=== PATIENT | female | born 1995 | race Caucasian/White ===

== ENCOUNTER 2017-02-27 10:06 | Outpatient (CLI) | payer OTHER | END 2017-02-27 10:07 | disposition home or self-care (01) | DX: R35.0 Frequency of micturition (principal) ==

== ENCOUNTER 2017-05-07 11:27 | Outpatient (CLI) | payer OTHER ==
[2017-05-07 19:07] LABS: BILIRUBIN,TOTAL 0.5 mg/dL (0.2-1.0); BUN - BLOOD UREA NITROGEN 12 mg/dL (6-20); CALCIUM 8.9 mg/dL (8.5-10.3); CARBON DIOXIDE - CO2 22 mmol/L (21-32); CHLORIDE 107 mmol/L (101-111); CHOLESTEROL 226 mg/dL; CREATININE 0.6 mg/dL (0.4-1.0); GFR - MDRD 129 (>89); GLUCOSE 90 mg/dL (70-100); HDL CHOLESTEROL 57 mg/dL; LDL/HDL RATIO 2.4 (<4.4); POTASSIUM 4.3 mmol/L (3.5-5.0); SODIUM 136 mmol/L (135-145); TOTAL PROTEIN 6.9 g/dL (6.7-8.2); TRIGLYCERIDES 159 mg/dL; VLDL CHOLESTEROL 32 mg/dL
[2017-05-07 19:09] LABS: BASOPHILS % (AUTO) 0.6 %; EOSINOPHILS # (AUTO) 0.1 10^3/uL (0.0-0.7); EOSINOPHILS % (AUTO) 1.6 %; HCT - HEMATOCRIT 40.7 % (37.0-47.0); HGB - HEMOGLOBIN 13.2 g/dL (12.0-16.0); LYMPHOCYTES # (AUTO) 2.4 10^3/uL (1.5-3.5); LYMPHOCYTES % (AUTO) 34.1 %; MEAN CORPUSCULAR HEMOGLOBIN 28.3 pg (27.0-31.0); MEAN CORPUSCULAR HGB CONC 32.5 g/dL (32.0-36.0); MEAN CORPUSCULAR VOLUME 87.1 fL (81.0-99.0); MEAN PLATELET VOLUME 7.2 fL (7.9-10.8); MONOCYTES # (AUTO) 0.4 10^3/uL (0.0-1.0); MONOCYTES % (AUTO) 5.6 %; NEUTROPHILS % (AUTO) 58.1 %; NUCLEATED RED BLOOD CELLS AUTO 0.1 /100WBC; RED BLOOD COUNT 4.67 10^6/uL (4.20-5.40); RED CELL DISTRIBUTION WIDTH 13.3 % (12.0-15.0); UNCORRECTED WHITE BLOOD COUNT 6.9 x10^3/uL; WHITE BLOOD COUNT 6.9 x10^3/uL (4.8-10.8)
== END 2017-05-07 11:28 | disposition home or self-care (01) ==
LOC: LAB.F 11:27
PROVIDERS: ATTEND Physician Assistant Medical
DX: Z00.00 Encounter for general adult medical examination without abnormal findings (principal); R35.0 Frequency of micturition; R51 Headache; E28.2 Polycystic ovarian syndrome
CPT/HCPCS: 36415; 80053; 80061; 84443; 85025

== ENCOUNTER 2017-06-26 10:47 | Outpatient (CLI) | payer OTHER | END 2017-06-26 10:48 | disposition home or self-care (01) | LOC: LAB.R 10:47 | PROVIDERS: ATTEND Nurse Practitioner Primary Care | DX: R10.2 Pelvic and perineal pain (principal); R30.0 Dysuria | CPT/HCPCS: 87086 ==

== ENCOUNTER 2018-02-15 13:49 | Emergency (ER) | payer BC, OTHER ==
--- NOTE | 2018-02-15 15:55 | CT Report ---
EXAM: CT SINUS EXAM DATE: 02/15/2018 03:38 PM. HISTORY: Diffuse sinus/eye swelling. Left mastoid pain. Headache. COMPARISONS: None. TECHNIQUE: Routine multi-axial CT imaging performed through the sinuses. Iodinated IV contrast: None. Reconstructions: Coronal. In accordance with CT protocol optimization, one or more of the following dose reduction techniques w ere utilized for this exam: automated exposure control, adjustment of mA and/or KV based on patient s ize, or use of iterative reconstructive technique. FINDINGS: RIGHT Frontal: Normal. Ethmoid: Normal. Maxillary: Normal. Sphenoid: Internal debris without air-fluid level. Drainage Pathways: The frontal recess, ostiomeatal complex and sphenoethmoidal recess are patent and normal. LEFT Frontal: Normal. Ethmoid: Normal. Maxillary: Normal. Sphenoid: Normal. Drainage Pathways: The frontal recess, ostiomeatal complex and sphenoethmoidal recess are patent and normal. Nasal Cavity: Normal. No mass or significant anatomic abnormality evident. Osseous Structures: Unremarkable. Orbits: Unremarkable. Other: None. IMPRESSION: Debris within the right sphenoid sinus, otherwise unremarkable sinus CT. [facility] Referring Provider Line: [phone] SITE ID: [id number]
--- NOTE | 2018-02-15 15:56 | CT Report ---
EXAM: CT HEAD EXAM DATE: 02/15/2018 03:45 PM. CLINICAL HISTORY: Diffuse eye and facial swelling. Left mastoid swelling. COMPARISON: None. TECHNIQUE: Multiaxial CT images were obtained from the foramen magnum to the vertex. Reformats: Coron al. IV contrast: None. In accordance with CT protocol optimization, one or more of the following dose reduction techniques w ere utilized for this exam: automated exposure control, adjustment of mA and/or KV based on patient s ize, or use of iterative reconstructive technique. FINDINGS: Parenchyma: No intraparenchymal hemorrhage. No evidence of mass, midline shift, or CT findings of inf arction. Cuellar-white differentiation is distinct. Extraaxial Spaces: Normal for age. No subdural or epidural collections identified. Ventricles: Normal in size and position. Sinuses and Orbits: Debris in the right sphenoid sinus. Chronic deformity of the left mastoid region suggesting prior surgery. Otherwise the imaged paranasal sinuses, orbits, and mastoids show no signif icant abnormality. Bones: No evidence of fracture or calvarial defect. Other: None. IMPRESSION: 1. No intracranial abnormality. 2. Chronic left mastoid abnormality noted. [facility] Referring Provider Line: [phone] SITE ID: [id number]
--- NOTE | 2018-02-15 16:06 | ED Physician Documentation ---
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 recent ab eyelid periorbital region swelling started 5 days ago 2 days ago saw PMD dx sinusitis rx augmentin filled augmentin 1 days ago PMD aslo rec [place] but pt has not used that no decongestants flonase etc now sx are worse and the left mastoid is painful and swollen PMD sent to ER for imaging mild congestion minimal PND denies preg on OCP and HCG neg in clinic 2 days ago Review of Systems Constitutional: denies: Fever, Chills Ears: reports: Ear pain Nose: reports: Congestion, Sinus pressure / pain Respiratory: denies: Cough GI: denies: Vomiting : denies: Now EGA Neurologic: reports: Headache PD PAST MEDICAL HISTORY - Past Medical History Past Medical History: Yes Cardiovascular: None Respiratory: Asthma Neuro: None Endocrine/Autoimmune: None GI: None 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 : Benign prostate hypertrophy HEENT: Chronic vision loss Musculoskeletal: None Derm: None - Past Surgical History Past Surgical History: Yes - Present Medications Home Medications: Ambulatory Orders Medication Instructions Recorded Confirmed Fluticasone [Flonase] 1 sprays RAFA BID PRN #1 bottle 02/15/18 Pseudoephedrine [Sudafed] 30 mg PO Q6H PRN #20 tablet 02/15/18 - Allergies Allergies/Adverse Reactions: Allergies Allergy/AdvReac Type Severity Reaction Status Date / Time clindamycin Allergy Respiratory Verified 02/15/18 14:03 neomycin Allergy Respiratory Verified 02/15/18 14:03 - Social History Does the pt smoke?: No Smoking Status: Never smoker Does the pt drink ETOH?: No Does the pt have substance abuse?: No - Immunizations Immunizations are current?: Yes - POLST Patient has POLST: No PD ED PE NORMAL - Vitals Vital signs reviewed: Yes - General General: Alert and oriented X 3 - HEENT HEENT: PERRL, EOMI, Other (ab periorbital region mod swollen but not red or warm, EOMI s pain, no proptosis, no focal sinus TTP, no appreciable nasal congestion R TM dull not erythematous, L largely occluded with cerumen, L mastoid tender and slightly swollen, no sig sinus TTP and no sig nasal edema or congestion) - Neck Neck: Supple, no meningeal sign - Cardiac Cardiac: RRR - Respiratory Respiratory: No respiratory distress - Derm Derm: Normal color - Neuro Neuro: Alert and oriented X 3 Results - Vitals Vitals: Vital Signs - 24 hr 02/15/18 02/15/18 13:58 16:55 Temperature 37.2 C 37 C Heart Rate 92 87 Respiratory 16 15 Rate Blood Pressure 123/86 H 115/74 O2 Saturation 96 98 Oxygen O2 Source Room air - Labs Labs: Laboratory Tests 02/15/18 16:36 Urine Color LIGHT YELLOW Urine Clarity CLEAR Urine pH 5.5 Ur Specific [place] <=1.005 Urine Protein NEGATIVE Urine Glucose (UA) NEGATIVE Urine Ketones NEGATIVE Urine Occult Blood TRACE-LYSE Urine Nitrite NEGATIVE Urine Bilirubin NEGATIVE Urine Urobilinogen 0.2 (NORMAL) Ur Leukocyte Esterase NEGATIVE Ur Microscopic Review NOT INDICATED Urine Culture Comments NOT INDICATED Urine HCG, Qual NEGATIVE - Rads (name of study) CT sinuses Radiology: See rad report (debris in right sphenoid sinus rest of sinuses normal ) CTH Radiology: See rad report (no acute process, chronically abnormal L mastoid) Departure - Departure Disposition: Home, Self Care Clinical Impression: Facial swelling Condition: Good Follow-Up: Maryan Pack PA-C [Primary Care Provider] - Prescriptions: Fluticasone [Flonase] 1 sprays RAFA BID PRN #1 bottle PRN Reason: allergies Pseudoephedrine [Sudafed] 30 mg PO Q6H PRN #20 tablet PRN Reason: congestion Comments: The CT scans were reassuring - there is some mucous and congestion in the right sphenoid sinuses but otherwise the CT scans are fine. There are no other inflamed sinuses and the mastoid does not look acutely infected. There are some lymph nodes in that area and that could be part of the tenderness behind the ear. I think the augmentin is a good antibiotic to cover the sinuses. I would add a decongestant such as sudafed and flonase And we gave you a dose of a steroid and antihistamine in the ED to decrease the swelling. You can continue to take zyrtec or claritin once a day until better Follow up with your PMD Sunday for a recheck Return if worse
[2018-02-15 16:43] LABS: BILIRUBIN,URINE NEGATIVE (NEGATIVE); GLUCOSE, URINE (UA) NEGATIVE (NEGATIVE); KETONES,URINE (UA) NEGATIVE (NEGATIVE); LEUKOCYTE ESTERASE, URINE NEGATIVE (NEGATIVE); NITRITE,URINE NEGATIVE (NEGATIVE); OCCULT BLOOD,URINE TRACE-LYSE (NEGATIVE); PH,URINE 5.5 PH (5.0-7.5); PROTEIN,URINE NEGATIVE (NEGATIVE); UROBILINOGEN,URINE 0.2 (NORMAL) E.U./dL (NORMAL)
[2018-02-15 16:46] LABS: CLARITY,URINE CLEAR (CLEAR)
[2018-02-15 16:47] LABS: HCG UR QUAL NEGATIVE
[2018-02-15] MEDS ORDERED: DEXAMETHASONE 10 MG/ML VIAL PO STA (17:32)
[2018-02-15] MEDS ORDERED: CETIRIZINE 10 MG TABLET PO STA (17:32)
[2018-02-15 18:21] VITALS: BP 112/62
== END 2018-02-15 18:18 | disposition home or self-care (01) ==
LOC: ED 13:49
DX: R22.0 Localized swelling, mass and lump, head (principal); J45.909 Unspecified asthma, uncomplicated
CPT/HCPCS: 70450; 70486; 81003; 81025; 99283; A9270; 81001; 87086

== ENCOUNTER 2018-07-04 19:08 | Emergency (ER) | payer BC, OTHER ==
--- NOTE | 2018-07-04 21:03 | ED Physician Documentation ---
PD HPI HEENT - Stated complaint Stated Complaint: EAR/SINUS PX - Chief complaint Chief Complaint: Heent - History obtained from History obtained from: Patient, Family - History of Present Illness Timing - onset: Today, Chronic, Other (episodic symptoms x 5 months, improvement with antibiotics but symptoms return when she's finished with them. Finished antibiotic yesterday (sulfa-based, cannot recall which one), and today developed subjective fevers (did not take temperature at home), generalized headache, dizziness, swollen tonsils, mild sore throat, neck pain, sinus congestion. Has had 5 courses of antibiotics over past several months, has seen ENT and CT scheduled for 07/17.) Pain level now: 3 Location: Sinuses, Throat Improves: Nothing Associated symptoms: Fever (subjective (sweats, chills)) Similar symptoms before: Diagnosis (recurrent sinusitis) Recently seen: Clinic Review of Systems Constitutional: reports: Fever (subjective), Chills, Fatigue, Sweats Eyes: reports: Reviewed and negative Ears: reports: Ear pain Nose: reports: Congestion, Sinus pressure / pain Throat: reports: Sore throat, Swollen tonsils Respiratory: denies: Cough GI: reports: Reviewed and negative PD PAST MEDICAL HISTORY - Past Medical History Past Medical History: Yes Cardiovascular: None Respiratory: Asthma Endocrine/Autoimmune: None GI: None 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 : Benign prostate hypertrophy HEENT: Chronic vision loss Musculoskeletal: None Derm: None - Past Surgical History Past Surgical History: Yes - Present Medications Home Medications: Ambulatory Orders Medication Instructions Recorded Confirmed Fluticasone [Flonase] 1 sprays RAFA BID PRN #1 bottle 02/15/18 Pseudoephedrine [Sudafed] 30 mg PO Q6H PRN #20 tablet 02/15/18 Cephalexin [Keflex] 500 mg PO QID #27 capsule 07/04/18 Fluticasone [Flonase] 1 sprays RAFA BID #1 bottle 07/04/18 predniSONE [Prednisone] 40 mg PO DAILY #8 tablet 07/04/18 - Allergies Allergies/Adverse Reactions: Allergies Allergy/AdvReac Type Severity Reaction Status Date / Time clindamycin Allergy Respiratory Verified 07/04/18 19:33 neomycin Allergy Respiratory Verified 07/04/18 19:33 - Social History Does the pt smoke?: No Smoking Status: Never smoker Does the pt drink ETOH?: No Does the pt have substance abuse?: No - Immunizations Immunizations are current?: Yes - POLST Patient has POLST: No PD ED PE NORMAL - Vitals Vital signs reviewed: Yes - General General: Alert and oriented X 3, No acute distress, Well developed/nourished - HEENT HEENT: Ears normal, Moist mucous membranes - Neck Neck: Supple, no meningeal sign - Respiratory Respiratory: No respiratory distress, Clear bilaterally - Abdomen Abdomen: Soft, Non tender, No organomegaly PD ED PE EXPANDED - HEENT HEENT: Swollen tonsils (symmetric and significant bilateral tonsillar hypertrophy with trace bilateral exudate), Tonsillar exudate Results - Vitals Vitals: Vital Signs - 24 hr 07/04/18 07/04/18 19:30 22:18 Temperature 37.2 C Heart Rate 97 74 Respiratory 18 16 Rate Blood Pressure 127/53 L 112/66 O2 Saturation 100 98 Oxygen O2 Source Room air - Labs Labs: Laboratory Tests 07/04/18 07/04/18 21:41 21:44 Infectious [place] Assay NEGATIVE Group A Strep Rapid Negative PD MEDICAL DECISION MAKING - ED course Complexity details: reviewed old records, reviewed results, re-evaluated patient , considered differential, d/w patient, d/w family ED course: At this time, emergent CT sinuses is not indicated. strep and mono tests are negative. She has very large tonsils with what appears to be small amt. of exudate. I believe patient would benefit from steroids (short course of PO ( prednisone) as well as nasal (flonase)). also rx keflex (after d/w patient, it sounds like she has not been on a cephalosporin for her sinusitis, and thus will try keflex. I explained that it is unlikely that this, or any antibiotic, will help at this point). - Sepsis Event Vital Signs: Vital Signs - 24 hr 07/04/18 07/04/18 19:30 22:18 Temperature 37.2 C Heart Rate 97 74 Respiratory 18 16 Rate Blood Pressure 127/53 L 112/66 O2 Saturation 100 98 Oxygen O2 Source Room air Departure - Departure Disposition: 01 Home, Self Care Clinical Impression: Sinusitis Condition: Good Instructions: ED Sinusitis Abx Tx Follow-Up: Maryan Pack PA-C [Primary Care Provider] - Prescriptions: Cephalexin [Keflex] 500 mg PO QID #27 capsule Fluticasone [Flonase] 1 sprays RAFA BID #1 bottle predniSONE [Prednisone] 40 mg PO DAILY #8 tablet Discharge Date/Time: 07/04/18 23:05
[2018-07-04] MEDS ORDERED: predniSONE 20 MG TABLET PO STA (21:51)
[2018-07-04 22:20] VITALS: BP 112/66
[2018-07-04] MEDS ORDERED: cephALEXin 250 MG CAPSULE PO STA (22:56)
== END 2018-07-04 23:05 | disposition home or self-care (01) ==
LOC: ED 19:08
DX: J32.9 Chronic sinusitis, unspecified (principal); J35.1 Hypertrophy of tonsils
CPT/HCPCS: 36415; 86308; 87070; 87430; 99283; A9270; J7512

== ENCOUNTER 2018-08-22 14:20 | Outpatient (CLI) | payer OTHER | END 2018-08-22 14:21 | disposition home or self-care (01) | LOC: LAB.R 14:20 | PROVIDERS: ATTEND Physician Assistant Medical | DX: J02.9 Acute pharyngitis, unspecified (principal) | CPT/HCPCS: 87070; 87430 ==